=== PATIENT | male | born 1950 | race American Indian/Alaskan Native ===

== ENCOUNTER 2017-04-06 06:15 | Observation (INO) | payer MEDICARE ==
[2017-04-03 11:25] VITALS: BMI 32.5
[2017-04-06] MEDS ORDERED: cefTRIAXone IV 1 gm in Dextros 50 ML IVPB ONE (09:10)
[2017-04-06] MEDS ORDERED: Lactated Ringer's 1,000 ML IV ONE ×2 (09:10→12:11)
[2017-04-06] MEDS ORDERED: Lidocaine 2% Jelly (Uro-Jet) ONE (09:10)
[2017-04-06] MEDS ORDERED: Midazolam 2 MG/2 ML VIAL ONE (09:21)
[2017-04-06] MEDS ORDERED: Propofol 10 mg/ml Inj (20 ML) ONE (09:21)
--- NOTE | 2017-04-06 10:16 | PCM.SURG1 ---
Surgeon's Initial Post Op Note - Surgeon's Notes Surgeon: Luz Maria Berry Pharmacist Per Diem: none Type of Anesthesia: General LMA Pre-Operative Diagnosis: BPH Operative Findings: same Post-Operative Diagnosis: same Operation Performed: TURP Specimen/Specimens Removed: urine, prostate Estimated Blood Loss: EBL {In ML}: 50 Blood Products Given: N/A Post-Op Condition: Good Date of Surgery/Procedure: 04/06/17 Time of Surgery/Procedure: 10:00
[2017-04-06] MEDS ORDERED: Albuterol HFA 90 mcg/actuation (8 g) IH PRN (10:37)
--- NOTE | 2017-04-06 11:19 | CP.PCM.PN ---
Subjective - Date & Time of Evaluation Date of Evaluation: 04/06/17 Time of Evaluation: 11:00 - Subjective Subjective: Dr. Tavares note: Patient is a 67 year old male with a history of HTN, BPH, and CAD is here for status post op TURP procedure with Dr Berry. Patient is in the PACU he is awake and able to answer questions. He says he is still feeling pain from the surgery but has no other complaints. Objective - Vital Signs/Intake and Output Vital Signs (last 24 hours): Temp Pulse Resp BP Pulse Ox 97.6 F 79 11 L 140/90 100 04/06/17 10:10 04/06/17 11:00 04/06/17 11:00 04/06/17 11:00 04/06/17 11:00 Intake and Output: 04/06/17 04/06/17 06:59 18:59 Intake Total 50 Balance 50 - Medications Medications: Current Medications Albuterol (Ventolin Hfa 90 Mcg/Actuation (8 G)) 2 puff IH RQ6 PRN PRN Reason: Shortness of Breath Amlodipine Besylate (Norvasc) 10 mg PO DAILY [place] Aspirin (Ecotrin) 81 mg PO DAILY [place] Atenolol (Tenormin) 100 mg PO DAILY [place] Finasteride (Proscar) 5 mg PO DAILY [place] Furosemide (Lasix) 20 mg PO DAILY [place] Hydromorphone HCl (Dilaudid) 0.5 mg IVP Q10M PRN PRN Reason: Pain, moderate (4-7) Stop: 04/06/17 12:14 Lactated Ringer's (Lactated Ringer's) 1,000 mls @ 150 mls/hr IV .Q6H40M [place] Ceftriaxone Sodium 1 gm/ (Dextrose) 100 mls @ 100 mls/hr IVPB DAILY [place] Isosorbide Mononitrate (Imdur) 60 mg PO DAILY [place] Losartan Potassium (Cozaar) 100 mg PO DAILY [place] Minoxidil (Loniten) 10 mg PO DAILY [place] Ondansetron HCl (Zofran Inj) 4 mg IVP ONCE PRN PRN Reason: Nausea/Vomiting Stop: 04/06/17 12:15 Oxycodone/Acetaminophen (Percocet 5/325 Mg Tab) 1 tab PO Q4H PRN PRN Reason: Pain, moderate (4-7) Stop: 04/09/17 10:23 Rosuvastatin Calcium (Crestor) 20 mg PO HS [place] Tamsulosin HCl (Flomax) 0.4 mg PO DAILY [place] Ticagrelor (Brilinta) 90 mg PO DAILY [place] - Constitutional Appears: Non-toxic, No Acute Distress - Eye Exam Eye Exam: Normal appearance, PERRL. absent: Scleral icterus Pupil Exam: NORMAL ACCOMODATION - Respiratory Exam Respiratory Exam: Clear to Ausculation Bilateral. absent: Rales, Rhonchi, Wheezes - Cardiovascular Exam Cardiovascular Exam: REGULAR RHYTHM, RRR, +S1, +S2. absent: Gallop, Rubs - GI/Abdominal Exam GI & Abdominal Exam: Soft, Normal Bowel Sounds. absent: Tenderness - Exam Additional comments: Ricketts in place with bladder irrigation. - Extremities Exam Extremities Exam: Normal Inspection. absent: Pedal Edema - Back Exam Back Exam: NORMAL INSPECTION - Neurological Exam Neurological Exam: Alert, Awake, Oriented x3 - Psychiatric Exam Psychiatric exam: Normal Affect, Normal Mood - Skin Skin Exam: Normal Color, Warm Assessment and Plan (1) S/P TURP Assessment & Plan: Patient had surgery today. He has a ricketts in with irrigation. Dr. Berry consult for Urology. Dilauded for severe pain 0.5mg q4h Percocet for moderate pain as needed. Continue IV Rocephin, follow up urine culture. Status: Acute (2) HTN (hypertension) Assessment & Plan: Norvasc 10mg, Atenolol 100mg, held Labetolol 100mg because it is a beta shannan , Lasix 20mg, Imdur 60mg, Loniten 10mg, Cozaar 100mg. Status: Acute (3) CAD (coronary artery disease) Assessment & Plan: Will start Aspirin 81mg and Brilanta 90 tomorrow. Status: Acute (4) BPH (benign prostatic hyperplasia) Assessment & Plan: Proscar 5mg and Flomax 0.4mg Status: Acute (5) Asthma Assessment & Plan: Ventolin as needed. Status: Acute (6) Hyperlipidemia Assessment & Plan: Crestor 20mg Status: Acute (7) Prophylactic measure Assessment & Plan: Pepcid 20mg bid, SCDS, will start VTE tomorrow. Status: Acute
[2017-04-06 18:02] LABS: BASO % 0.3 % (0.0-2.0); EOS % 0.5 % (0.0-4.0); HEMOGLOBIN 11.7 g/dL (12.0-18.0); LYMPH # 0.7 K/uL (1.0-4.3); LYMPH % 8.3 % (20.0-40.0); MEAN CELL VOLUME 80.6 fL (80.0-94.0); MEAN CORPUSCULAR HEMOGLOBIN 26.1 pg (27.0-31.0); MEAN CORPUSCULAR HGB CONC 32.4 g/dL (33.0-37.0); MONO # 0.5 K/uL (0.0-0.8); MONO % 5.2 % (0.0-10.0); NEUT # 7.6 K/uL (1.8-7.0); NEUT % 85.7 % (50.0-75.0); PLATELET COUNT 209 K/uL (130-400); RBC 4.47 Mil/uL (4.40-5.90); RED CELL DISTRIBUTION WIDTH 16.5 % (11.5-14.5); WHITE BLOOD COUNT 8.8 K/uL (4.8-10.8)
[2017-04-06 18:21] LABS: ALB/GLOB RATIO 1.1 (1.0-2.1); ALBUMIN 4.1 g/dL (3.5-5.0); ALT/SGPT 154 U/L (21-72); AST/SGOT 253 U/L (17-59); BLOOD UREA NITROGEN 17 mg/dL (9-20); GFR AFRICAN-AMERICAN > 60; GFR NON-AFRICAN AMERICAN > 60
[2017-04-06 18:41] LABS: ANISOCYTOSIS SLIGHT; EOSINOPHIL 1 % (0-4); HYPOCHROMIC SLIGHT; LYMPHOCYTE 6 % (20-40); MONOCYTE 5 % (0-10); NEUTROPHIL 88 % (50-75); OVALOCYTES SLIGHT; PLATELET ESTIMATE NORMAL (NORMAL); TOTAL CELLS COUNTED 100
[2017-04-06] MEDS: Lactated Ringer's 1,000 ML IV SCH (19:28)
[2017-04-07] MEDS: Lactated Ringer's 1,000 ML IV SCH (02:28)
[2017-04-07] MEDS: Oxycodone/Acetaminophen 5/325 mg Tab PO PRN ×4 (04:34→19:43)
[2017-04-07 07:45] LABS: BASO % 0.6 % (0.0-2.0); EOS # 0.1 K/uL (0.0-0.7); EOS % 1.6 % (0.0-4.0); HEMOGLOBIN 10.2 g/dL (12.0-18.0); LYMPH % 14.5 % (20.0-40.0); MEAN CELL VOLUME 80.4 fL (80.0-94.0); MEAN CORPUSCULAR HEMOGLOBIN 26.5 pg (27.0-31.0); MEAN PLATELET VOLUME 8.6 fL (7.2-11.7); MONO # 0.4 K/uL (0.0-0.8); MONO % 6.4 % (0.0-10.0); NEUT # 5.4 K/uL (1.8-7.0); NEUT % 76.9 % (50.0-75.0); RBC 3.85 Mil/uL (4.40-5.90); RED CELL DISTRIBUTION WIDTH 16.4 % (11.5-14.5)
[2017-04-07 08:01] LABS: BLOOD UREA NITROGEN 15 mg/dL (9-20); CALCIUM 7.6 mg/dl (8.6-10.4); GFR AFRICAN-AMERICAN > 60; GFR NON-AFRICAN AMERICAN > 60
[2017-04-07 08:29] LABS: HEPATITIS B SURFACE AG NEGATIVE (NEGATIVE)
[2017-04-07 08:46] LABS: HEPATITIS C ANTIBODY Negative (NEGATIVE)
[2017-04-07 09:01] LABS: HEPATITIS A IGM NEGATIVE (NEGATIVE)
[2017-04-07 09:07] LABS: HEPATITIS B CORE AB Negative (NEGATIVE)
--- NOTE | 2017-04-07 09:54 | CP.PCM.PN ---
Subjective - Date & Time of Evaluation Date of Evaluation: 04/07/17 Time of Evaluation: 09:54 - Subjective Subjective: PGY2 medicine progress note for Dr. Tavares Patient seen and examined. Patient states dilaudid given yesterday made him feel nauseous but denies other episodes of nausea. Patient reports discomfort with ricketts catheter but states urine is "clearing up." Patient denies fever or chills. Objective - Vital Signs/Intake and Output Vital Signs (last 24 hours): Temp Pulse Resp BP Pulse Ox 98.7 F 84 20 152/84 H 97 04/07/17 08:50 04/07/17 08:50 04/07/17 08:50 04/07/17 08:50 04/07/17 08:50 Intake and Output: 04/07/17 04/07/17 06:59 18:59 Intake Total 40670 Output Total 23783 Balance -1270 - Medications Medications: Current Medications Albuterol (Ventolin Hfa 90 Mcg/Actuation (8 G)) 2 puff IH RQ6 PRN PRN Reason: Shortness of Breath Amlodipine Besylate (Norvasc) 10 mg PO DAILY [place] Aspirin (Ecotrin) 81 mg PO DAILY [place] Atenolol (Tenormin) 100 mg PO DAILY [place] Famotidine (Pepcid) 20 mg PO BID [facility] Last Admin: 04/06/17 19:22 Dose: 20 mg Finasteride (Proscar) 5 mg PO DAILY [place] Furosemide (Lasix) 20 mg PO DAILY [facility] Ceftriaxone Sodium 1 gm/ (Dextrose) 100 mls @ 100 mls/hr IVPB DAILY [place] Isosorbide Mononitrate (Imdur) 60 mg PO DAILY [place] Losartan Potassium (Cozaar) 100 mg PO DAILY [place] Minoxidil (Loniten) 10 mg PO DAILY [place] Morphine Sulfate (Morphine) 2 mg IVP Q4 PRN PRN Reason: Pain, severe (8-10) Oxycodone/Acetaminophen (Percocet 5/325 Mg Tab) 1 tab PO Q4H PRN PRN Reason: Pain, moderate (4-7) Stop: 04/09/17 10:23 Last Admin: 04/07/17 04:34 Dose: 1 tab Potassium Chloride (K-Dur 20 Meq Er Tab) 40 meq PO ONCE ONE Stop: 04/07/17 09:18 Rosuvastatin Calcium (Crestor) 20 mg PO HS [facility] Last Admin: 04/06/17 22:48 Dose: 20 mg Tamsulosin HCl (Flomax) 0.4 mg PO DAILY [facility] Ticagrelor (Brilinta) 90 mg PO DAILY [facility] - Labs Labs: 04/07/17 07:22 04/07/17 07:22 - Constitutional Appears: No Acute Distress - Head Exam Head Exam: ATRAUMATIC, NORMOCEPHALIC - Eye Exam Eye Exam: EOMI - ENT Exam ENT Exam: Mucous Membranes Moist - Respiratory Exam Respiratory Exam: Clear to Ausculation Bilateral - Cardiovascular Exam Cardiovascular Exam: +S1, +S2 - GI/Abdominal Exam GI & Abdominal Exam: Soft, Normal Bowel Sounds - Exam Additional comments: ricketts catheter with irrigation with faintly blood-tinged output - Extremities Exam Extremities Exam: Normal Inspection - Neurological Exam Neurological Exam: Alert, Awake - Psychiatric Exam Psychiatric exam: Normal Affect - Skin Skin Exam: Warm Assessment and Plan - Assessment and Plan (Free Text) Assessment: (1) S/P TURP Assessment & Plan: POD #[address] Berry CBI discontinued today, 04/07/[address] Kristi Berry consult for Urology Percocet for moderate pain as needed morphine [id number] severe pain Continue IV Rocephin, follow up urine culture when patient discharged, he will leave with ricketts catheter, to be removed on in Dr. Berry's office Status: Acute (2) HTN (hypertension) Assessment & Plan: Norvasc 10mg Atenolol 100mg Lasix 20mg Loniten (Minoxidil) 10mg Cozaar 100mg Status: Acute (3) CAD (coronary artery disease) Assessment & Plan: Will start Aspirin 81mg and Brilanta 90 tomorrow (held for surgery) Imdur 60mg Status: Acute (4) BPH (benign prostatic hyperplasia) Assessment & Plan: Proscar 5mg and Flomax 0.4mg daily Status: Acute (5) Asthma Assessment & Plan: Ventolin as needed. Status: Acute (6) Hyperlipidemia Assessment & Plan: Crestor 20mg Status: Acute (7) Prophylactic measure Assessment & Plan: Pepcid 20mg bid, SCDS Status: Acute All medical management as per Dr. Tavares
[2017-04-07] MEDS ORDERED: Potassium Chloride 20 mEq ER Tab PO ONE (10:00)
--- NOTE | 2017-04-07 10:43 | PCM.URO ---
Urology Progress Note - General General: No Complaints, Tolerating Diet - Subjective Abdominal Pain: No (discomfort of penis) Flank Pain: No Nausea: No Vomiting: No Voiding Well: No Dsypnea: No Chest Pain: No Fever & Chills: No - Objective Lab Studies: Reviewed Lab Results Last 24 Hours: Laboratory Results - last 24 hr 04/06/17 04/06/17 04/07/17 17:59 17:59 07:22 WBC 8.8 7.0 RBC 4.47 3.85 L Hgb 11.7 L 10.2 L Hct 36.0 31.0 L MCV 80.6 80.4 MCH 26.1 L 26.5 L MCHC 32.4 L 33.0 RDW 16.5 H 16.4 H Plt Count 209 186 MPV 8.0 8.6 Neut % (Auto) 85.7 H 76.9 H Lymph % (Auto) 8.3 L 14.5 L [place] % (Auto) 5.2 6.4 Eos % (Auto) 0.5 1.6 Baso % (Auto) 0.3 0.6 Neut # 7.6 H 5.4 Lymph # 0.7 L 1.0 [place] # 0.5 0.4 Eos # 0.0 0.1 Baso # 0.0 0.0 Neutrophils % (Manual) 88 H Lymphocytes % (Manual) 6 L Monocytes % (Manual) 5 Eosinophils % (Manual) 1 Platelet Estimate Normal Hypochromasia (manual) Slight Anisocytosis (manual) Slight Ovalocytes Slight Sodium 133 Potassium 3.9 Chloride 97 L Carbon Dioxide 30 Anion Gap 11 BUN 17 Creatinine 1.2 Est GFR ( Amer) > 60 Est GFR (Non-Af Amer) > 60 Random Glucose 143 H Calcium 8.0 L Total Bilirubin 0.7 AST 253 H D ALT 154 H D Alkaline Phosphatase 101 Total Protein 7.6 Albumin 4.1 Globulin 3.6 Albumin/Globulin Ratio 1.1 Hepatitis A IgM Ab Hep Bs Antigen Hep B Core IgM Ab Hepatitis C Antibody 04/07/17 04/07/17 07:22 07:22 WBC RBC Hgb Hct MCV MCH MCHC RDW Plt Count MPV Neut % (Auto) Lymph % (Auto) [place] % (Auto) Eos % (Auto) Baso % (Auto) Neut # Lymph # [place] # Eos # Baso # Neutrophils % (Manual) Lymphocytes % (Manual) Monocytes % (Manual) Eosinophils % (Manual) Platelet Estimate Hypochromasia (manual) Anisocytosis (manual) Ovalocytes Sodium 134 Potassium 3.3 L Chloride 97 L Carbon Dioxide 31 H Anion Gap 9 L BUN 15 Creatinine 1.1 Est GFR ( Amer) > 60 Est GFR (Non-Af Amer) > 60 Random Glucose 111 H Calcium 7.6 L Total Bilirubin AST ALT Alkaline Phosphatase Total Protein Albumin Globulin Albumin/Globulin Ratio Hepatitis A IgM Ab Negative Hep Bs Antigen Negative Hep B Core IgM Ab Negative Hepatitis C Antibody Negative Intake & Output: Intake & Output 04/06/17 04/07/17 04/07/17 18:59 06:59 18:59 Intake Total 3050 85802 Output Total 550 92266 Balance 2500 -1270 Intake: IV 3050 Intake, IV Amount 1800 Left Forearm 1800 Oral 430 Other 27498 Output: Urine 550 84236 3-way Urethral 55341 Other: Voiding Method 3-way Mantilla with CBI # Voids 3-way Urethral 4 # Bowel Movements 0 Vital Signs: Vital Signs - 24 hr 04/06/17 04/06/17 04/06/17 10:45 11:00 11:15 Temperature Pulse Rate 78 79 80 Respiratory 12 11 L 12 Rate Blood Pressure 132/85 140/90 158/75 H O2 Sat by Pulse 100 100 100 Oximetry 04/06/17 04/06/17 04/06/17 11:27 11:45 12:00 Temperature Pulse Rate 74 82 80 Respiratory 11 L 10 L 12 Rate Blood Pressure 156/85 H 143/77 145/67 O2 Sat by Pulse 100 100 100 Oximetry 04/06/17 04/06/17 04/06/17 12:30 13:00 13:30 Temperature Pulse Rate 74 74 70 Respiratory 10 L 10 L 10 L Rate Blood Pressure 123/75 146/90 133/94 H O2 Sat by Pulse 98 95 95 Oximetry 04/06/17 04/06/17 04/06/17 14:00 14:30 15:00 Temperature Pulse Rate 85 89 80 Respiratory 12 12 10 L Rate Blood Pressure 144/102 H 136/88 138/80 O2 Sat by Pulse 98 99 100 Oximetry 04/06/17 04/06/17 04/06/17 16:00 17:00 18:00 Temperature 98.2 F 98.5 F Pulse Rate 80 78 78 Respiratory 14 11 L 12 Rate Blood Pressure 126/98 H 134/98 H 134/98 H O2 Sat by Pulse 98 98 98 Oximetry 04/06/17 04/06/17 04/06/17 19:30 20:30 23:45 Temperature 99.2 F 99.2 F Pulse Rate 90 83 Respiratory 20 20 Rate Blood Pressure 192/103 H 157/83 H 163/86 H O2 Sat by Pulse 100 97 Oximetry 04/07/17 04/07/17 08:50 10:15 Temperature 98.7 F Pulse Rate 84 Respiratory 20 Rate Blood Pressure 152/84 H 152/84 H O2 Sat by Pulse 97 Oximetry - Physical Exam Abdominal Exam: Soft, Non-Tender, Non-Distended Back: No CVA Tenderness Genitalia: Without Inflammation Extremities: Normal: Bilateral - Male Phallus: Normal Scrotum: Normal Testes: Normal: Bilateral - Plan Catheter Care: Yes Ambulation - Out of Bed: Yes Discontinue Intravenous Fluids: Yes Intake & Output: Yes See Orders: Yes Additional Information: Imp: doing well. POD#1. p turp
[2017-04-08 01:35] VITALS: RESP 20
[2017-04-08] MEDS: Oxycodone/Acetaminophen 5/325 mg Tab PO PRN (04:57)
[2017-04-08 07:42] LABS: BASO % 0.5 % (0.0-2.0); EOS # 0.2 K/uL (0.0-0.7); EOS % 2.6 % (0.0-4.0); HEMOGLOBIN 9.6 g/dL (12.0-18.0); LYMPH # 1.3 K/uL (1.0-4.3); LYMPH % 16.4 % (20.0-40.0); MEAN CELL VOLUME 80.3 fL (80.0-94.0); MEAN CORPUSCULAR HEMOGLOBIN 26.3 pg (27.0-31.0); MEAN CORPUSCULAR HGB CONC 32.8 g/dL (33.0-37.0); MEAN PLATELET VOLUME 8.3 fL (7.2-11.7); MONO # 0.6 K/uL (0.0-0.8); MONO % 8.2 % (0.0-10.0); NEUT # 5.7 K/uL (1.8-7.0); NEUT % 72.3 % (50.0-75.0); RBC 3.64 Mil/uL (4.40-5.90); RED CELL DISTRIBUTION WIDTH 15.9 % (11.5-14.5); WHITE BLOOD COUNT 7.8 K/uL (4.8-10.8)
[2017-04-08 08:55] VITALS: O2SAT 96
[2017-04-08 09:01] LABS: MAGNESIUM 1.8 mg/dL (1.6-2.3)
[2017-04-08 09:17] LABS: ALB/GLOB RATIO 1.1 (1.0-2.1); ALBUMIN 3.4 g/dL (3.5-5.0); ALT/SGPT 78 U/L (21-72); AST/SGOT 71 U/L (17-59); BLOOD UREA NITROGEN 17 mg/dL (9-20); CALCIUM 7.8 mg/dl (8.6-10.4); GFR AFRICAN-AMERICAN > 60; GFR NON-AFRICAN AMERICAN > 60
--- NOTE | 2017-04-08 11:16 | CP.PCM.PN ---
Subjective - Date & Time of Evaluation Date of Evaluation: 04/08/17 Time of Evaluation: 11:04 - Subjective Subjective: PGY 2 Resident Note- Dr. Tavares's service Patient seen and examined in no apparent acute distress. Patient is in anticipation to be discharged. Patient had no immediate complaints. Patient reiterated discharge instructions as per Dr. Kassandra Berry. Objective - Vital Signs/Intake and Output Vital Signs (last 24 hours): Temp Pulse Resp BP Pulse Ox 97.9 F 69 20 156/77 H 96 04/08/17 07:15 04/08/17 07:15 04/08/17 07:15 04/08/17 09:53 04/08/17 07:15 Intake and Output: 04/08/17 04/08/17 06:59 18:59 Intake Total 700 Output Total 2300 Balance -1600 - Medications Medications: Current Medications Albuterol (Ventolin Hfa 90 Mcg/Actuation (8 G)) 2 puff IH RQ6 PRN PRN Reason: Shortness of Breath Amlodipine Besylate (Norvasc) 10 mg PO DAILY [facility] Last Admin: 04/08/17 09:53 Dose: 10 mg Aspirin (Ecotrin) 81 mg PO DAILY [facility] Last Admin: 04/08/17 09:52 Dose: 81 mg Atenolol (Tenormin) 100 mg PO DAILY [facility] Last Admin: 04/08/17 09:53 Dose: 100 mg Famotidine (Pepcid) 20 mg PO BID [facility] Last Admin: 04/08/17 09:54 Dose: 20 mg Finasteride (Proscar) 5 mg PO DAILY [facility] Last Admin: 04/08/17 09:57 Dose: 5 mg Furosemide (Lasix) 20 mg PO DAILY [facility] Last Admin: 04/08/17 09:53 Dose: 20 mg Ceftriaxone Sodium 1 gm/ (Dextrose) 100 mls @ 100 mls/hr IVPB DAILY [facility] Last Admin: 04/08/17 09:55 Dose: 100 mls/hr Isosorbide Mononitrate (Imdur) 60 mg PO DAILY [facility] Last Admin: 04/08/17 09:52 Dose: 60 mg Losartan Potassium (Cozaar) 100 mg PO DAILY [facility] Last Admin: 04/08/17 09:54 Dose: 100 mg Minoxidil (Loniten) 10 mg PO DAILY [facility] Last Admin: 04/08/17 09:54 Dose: 10 mg Morphine Sulfate (Morphine) 2 mg IVP Q4 PRN PRN Reason: Pain, severe (8-10) Oxycodone/Acetaminophen (Percocet 5/325 Mg Tab) 1 tab PO Q4H PRN PRN Reason: Pain, moderate (4-7) Stop: 04/09/17 10:23 Last Admin: 04/08/17 04:57 Dose: 1 tab Rosuvastatin Calcium (Crestor) 20 mg PO HS [facility] Last Admin: 04/07/17 21:56 Dose: 20 mg Tamsulosin HCl (Flomax) 0.4 mg PO DAILY [facility] Last Admin: 04/08/17 09:54 Dose: 0.4 mg Ticagrelor (Brilinta) 90 mg PO DAILY [facility] Last Admin: 04/08/17 09:54 Dose: 90 mg - Labs Labs: 04/08/17 07:22 04/08/17 07:22 - Constitutional Appears: Non-toxic, No Acute Distress - Head Exam Head Exam: ATRAUMATIC, NORMAL INSPECTION, NORMOCEPHALIC - Eye Exam Eye Exam: EOMI, Normal appearance, PERRL - ENT Exam ENT Exam: Mucous Membranes Moist - Neck Exam Neck Exam: Full ROM - Respiratory Exam Respiratory Exam: NORMAL BREATHING PATTERN. absent: Wheezes - Cardiovascular Exam Cardiovascular Exam: REGULAR RHYTHM, +S1, +S2 - GI/Abdominal Exam GI & Abdominal Exam: Soft, Normal Bowel Sounds - Exam Additional comments: ricketts in place - Extremities Exam Extremities Exam: Full ROM - Neurological Exam Neurological Exam: Alert, Awake, Oriented x3 - Psychiatric Exam Psychiatric exam: Normal Affect, Normal Mood - Skin Skin Exam: Dry, Normal Color, Warm Assessment and Plan - Assessment and Plan (Free Text) Assessment: (1) S/P TURP Assessment & Plan: POD #2 TURP with Urologist, Dr. Berry Pain Control Fluid intake encouraged Urine Culture negative When patient discharged, he will leave with ricketts catheter, to be removed on in Dr. Berry's office Status: Acute (2) HTN (hypertension) Assessment & Plan: Norvasc 10mg Atenolol 100mg Lasix 20mg Loniten (Minoxidil) 10mg Cozaar 100mg Status: Acute (3) CAD (coronary artery disease) Assessment & Plan: Aspirin 81mg and Brillinta 90 Imdur 60mg Status: Acute (4) BPH (benign prostatic hyperplasia) Assessment & Plan: Proscar 5mg and Flomax 0.4mg daily Status: Acute (5) Asthma Assessment & Plan: Ventolin as needed. Status: Acute (6) Hyperlipidemia Assessment & Plan: Crestor 20mg Status: Acute (7) Prophylactic measure Assessment & Plan: Pepcid 20mg bid, SCDS Status: Acute Discharge Plan Patient is medically stable for discharge home. Patient to follow up at Dr. Berry's office tomorrow, April 09. Patient should call his office number [phone] to make an appointment. Patient is asked to keep the ricketts in place . Patient may resume home meds. Patient to be given a prescription for Levaquin, Percocet and Colace. Patient should take the pain medications only as needed every four hours for relief. Patient should take the other medications as indicated on his prescription. Patient is encouraged to drink water daily. If symptoms, return go to the emergency room. Instructions explained to the patient who is aware. Discussed with attending. All medical management as per Dr. Tavares
[2017-04-08 13:00] VITALS: BP 131/72; PULSE 64; TEMP 98.2
--- NOTE | 2017-04-08 22:52 | PCM.URO ---
Urology Progress Note - General General: No Complaints, Tolerating Diet - Subjective Abdominal Pain: No (feeling well) Flank Pain: No Nausea: No (passing flatus) Vomiting: No Hematuria: No Dsypnea: No Chest Pain: No Fever & Chills: No - Objective Lab Studies: Reviewed Lab Results Last 24 Hours: Laboratory Results - last 24 hr 04/08/17 04/08/17 07:22 07:22 WBC 7.8 RBC 3.64 L Hgb 9.6 L Hct 29.2 L MCV 80.3 MCH 26.3 L MCHC 32.8 L RDW 15.9 H Plt Count 173 MPV 8.3 Neut % (Auto) 72.3 Lymph % (Auto) 16.4 L [place] % (Auto) 8.2 Eos % (Auto) 2.6 Baso % (Auto) 0.5 Neut # 5.7 Lymph # 1.3 [place] # 0.6 Eos # 0.2 Baso # 0.0 Sodium 133 Potassium 3.5 L Chloride 97 L Carbon Dioxide 31 H Anion Gap 8 L BUN 17 Creatinine 1.2 Est GFR ( Amer) > 60 Est GFR (Non-Af Amer) > 60 Random Glucose 99 Calcium 7.8 L Magnesium 1.8 Total Bilirubin 0.4 AST 71 H D ALT 78 H D Alkaline Phosphatase 76 Total Protein 6.5 Albumin 3.4 L Globulin 3.2 Albumin/Globulin Ratio 1.1 Intake & Output: Intake & Output 04/08/17 04/08/17 04/09/17 06:59 18:59 06:59 Intake Total 700 Output Total 2300 Balance -1600 Intake: Intake, IV Amount 0 Left Forearm 0 Oral 500 Other 200 Output: Urine 2300 3-way Urethral 2300 Other: # Bowel Movements 0 Vital Signs: Vital Signs - 24 hr 04/07/17 04/08/17 04/08/17 23:50 07:15 09:53 Temperature 98.6 F 97.9 F Pulse Rate 73 69 Respiratory 20 20 Rate Blood Pressure 129/65 156/77 H 156/77 H O2 Sat by Pulse 98 96 Oximetry 04/08/17 12:59 Temperature 98.2 F Pulse Rate 64 Respiratory 20 Rate Blood Pressure 131/72 O2 Sat by Pulse Oximetry - Physical Exam Abdominal Exam: Soft, Non-Tender, Non-Distended Back: No CVA Tenderness Genitalia: Without Inflammation Urinary Catheter Draining Well: Yes Urine Color: Clear, Yellow Extremities: Normal: Bilateral - Male Phallus: Normal Scrotum: Normal Testes: Normal: Bilateral - Plan Catheter Care: Yes Ambulation - Out of Bed: Yes Intake & Output: Yes See Orders: Yes Additional Information: Imp: doing well. P: outpt f/u. Rx - levaquin, colace. ricketts cath to leg bag. discussed w pt and w hosp medical and nursing staff - Date & Time of Note Date: 04/08/17 Time: 12:30
--- NOTE | 2017-04-12 06:54 | OP ---
PROCEDURE DATE: UROLOGY OPERATIVE REPORT PREOPERATIVE DIAGNOSIS Benign prostatic hyperplasia. POSTOPERATIVE DIAGNOSIS Benign prostatic hyperplasia. PROCEDURE: Transurethral resection of the prostate. OPERATING SURGEON: Dr. Venita Berry. DESCRIPTION OF PROCEDURE: As follows. The patient received general anesthesia via LMA. The patient was placed in lithotomy position. Genitalia prepped and draped sterilely. The patient received perioperative antibiotics. Procedure was performed under video endoscopic control. A 26-Thai continuous flow resectoscope sheath was introduced under direct vision using the visual obturator. Urethra, prostate, and bladder were inspected. FINDINGS There was no stricture in the anterior urethra. There was evidence of trilobar prostatic hypertrophy. There was moderate bladder trabeculation. The ureteral orifices were identified bilaterally and were intact. The resectoscope was inserted. The obstructing prostatic tissue was resected. Resection was begun at the bladder neck on the floor. The ureteral orifice were identified and spared throughout the resection. Thereafter, the anterior roof tissue was resected. Subsequently, the right lateral lobe and thereafter the left lateral lobe were resected. Finally, the floor and apical prostatic tissue were resected with surgeon's index finger within the [place] drape in the rectum. Hemostasis was achieved after each section of resection. The prostatic chips were removed using the [employer] evacuator. Hemostasis was complete. The resectoscope was reinserted. There were no residual prostatic chips. The resectoscope and sheath removed. Mantilla catheter was inserted. Bladder drainage was clear. The patient was returned to the supine position. The patient tolerated the procedure without complication. The patient was transferred to the PACU in satisfactory condition. Venita Berry MD cc: Mauricio Tavares MD
== END 2017-04-08 13:41 | disposition home or self-care (01) ==
LOC: C.SDS 06:15 → INTOOBSV 11:07 → C.9S 11:07 → C.6T 18:27
PROVIDERS: ADMIT Internal Medicine Pulmonary Disease; ATTEND Internal Medicine Pulmonary Disease
DX: N40.1 Benign prostatic hyperplasia with lower urinary tract symptoms (principal); N32.89 Other specified disorders of bladder
CPT/HCPCS: 36415; 52630; 80048; 80053; 80074; 83735; 85025; 87086; 88305; G0378; J0696; J1170; J2405; J7120